=== PATIENT | female | born 1965 | race Two or more races ===

== ENCOUNTER → 2024-10-05 | Emergency (ER) | payer OTHER ==
[~2024-10-05] VITALS: Ht 157.5 cm; Wt 49.9 kg
[~2024-10-05] MED LIST: BACTRIM DS TAB1 EACH PO; CEFTRIAXONE SODIUM 1,000 MG VIAL IM ONE; EVISTA60 MG; FAMOtidine 10 MG/ML (4ML VIAL) IV ONE; KETOROLAC TROMETHAMINE 60 MG VIAL IM ONE; PEPCID AC20 MG PO; TAMS0.4C PO; TAMSULOSIN HCL 0.4 MG CAP PO ONE
[2024-10-05 12:09] LABS: HEMATOCRIT 37.6 % (36.0-45.00); HEMOGLOBIN 12.4 g/dL (12.0-15.00); MEAN CELL VOLUME 90.2 fL (80.00-100.00); MEAN CORPUSCULAR HEMOGLOBIN 29.9 pg (27.00-32.0); MEAN CORPUSCULAR HGB CONC 33.1 g/dl (32.0-36.0); PLATELET COUNT 378 K/uL (150-450); RED BLOOD COUNT 4.17 M/uL (4.00-6.00); RED CELL DISTRIBUTION WIDTH 14.9 % (11.5-14.5)
[2024-10-05 12:24] LABS: INR 1.01; PARTIAL THROMBOPLASTIN TIME 27.2 SECONDS (22.0-34.0)
[2024-10-05 12:35] LABS: PH,URINE 5.5 (5.0-8.0); URINE APPEARANCE Cloudy; URINE BILIRRUBIN Negative (NEGATIVE); URINE BLOOD Moderate; URINE COLOR Yellow; URINE GLUCOSE Negative (NEGATIVE); URINE KETONE 15 (NEGATIVE); URINE LEUKOCYTE Moderate; URINE NITRATE Positive; URINE PROTEIN 30 (NEGATIVE); URINE UROBILINOGEN 0.2 E.U./dl
[2024-10-05 12:36] LABS: URINE EPITHELIAL CELLS 15.3 uL (0.0-38.8); URINE RBC 20.1 uL (0.0-20.8); URINE WBC 2384.7 uL (0.0-23.2)
[2024-10-05 12:54] LABS: URINE BACTERIA > 9821.5 uL (0.0-1933); URINE CAST 0.14 uL (0.0-1.40)
== END | disposition home or self-care (01) ==
LOC: ER 08:08
PROVIDERS: General Practice
DX: R10.31 Right lower quadrant pain (principal); N39.0 Urinary tract infection, site not specified